=== PATIENT | male | born 1960 | race Caucasian/White ===

== ENCOUNTER 2016-07-10 15:35 | Inpatient (IN) | payer MEDICAID ==
--- NOTE | ~2016-07-10 | CT2 ---
[facility] Service of [facility] RADIOLOGY TEXT RESULTS PATIENT: LINH AKHTAR LOCATION: [facility] 226-01 : [birth year] UNIT #: [id number] AGE: [address]: Ana Rosa Land MD SEX: M ORDER DR: [id number] [facility] [address] [place], [place] [address] [id number] MR#: [id number] Acc #: [id number] NAME: LINH AKHTAR : 1960 SEX: M STUDY DATE/TIME: 07/10/2016 16:47 UNIT: [facility] ROOM: STUDY DESCRIPTION: CT Abd and Pelv W Cont Attending Physician: Jet Urena D.O. Ordering Physician: Jet Urena D.O. Primary Care Physician: Ruben Kilpatrick M.D. MEDICAL IMAGING REPORT This report is preliminary unless electronic signature is present EXAM CT abdomen and pelvis with contrast INDICATIONS Abdominal pain, fever, back pain 4 days. TECHNIQUE CTA abdomen and pelvis was performed following administration of IV contrast. Coronal and sagittal reformatted images were obtained. This CT exam was performed with one or more of the following radiation dose reduction techniques: automatic exposure control, adjustment of mA and/or kV according to patient size, and iterative reconstruction. COMPARISON STUDIES No comparisons. FINDINGS The lung bases are clear. Coronary artery calcification. The liver, gallbladder and spleen are unremarkable. Bilateral renal cysts. The largest is in the lower pole of the left kidney. Tiny nodule in the left adrenal gland, probably an adenoma. The right adrenal gland is unremarkable. Pancreas unremarkable. There is some mild nonspecific stranding about the kidneys. There is ectasia of the infrarenal abdominal aorta. 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 PELVIS: The colon is unremarkable. Prior appendectomy. No free fluid. Remainder of the pelvis is unremarkable. Bone windows are unremarkable. IMPRESSION 1. There is mild perinephric stranding which is nonspecific. It can be [facility] Service of [facility] RADIOLOGY TEXT RESULTS PATIENT: LINH AKHTAR LOCATION: [facility] 226-01 : [birth year] UNIT #: [id number] AGE: [address]: Ana Rosa Land MD SEX: M ORDER DR: seen with pyelonephritis. Correlate clinically with symptoms and correlate with urinalysis if there is clinical suspicion. 2. 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 3. Prior appendectomy. Dictated by... Milind Herrera M.D. THIS IS AN ELECTRONICALLY VERIFIED REPORT Milind Herrera M.D. at 07/11/2016 2:02 PM ARS/pcl TD: 07/10/2016 20:33 JOB #: [id number] MEDICAL IMAGING REPORT Page 1 of 1 COPY
--- NOTE | ~2016-07-10 | CO ---
Unit #: [id number] #: [id number] Patient: LINH AKHTAR [id number] [address] [place], [place] [address] [id number] MR#: [id number] NAME: LIHN AKHTAR ROOM: 226 Age: 55 Sex: M Admission Date: 07/10/2016 : 1960 Attending Physician: Ana Rosa Land M.D. Primary Care Physician: Ruben Kilpatrick M.D. Consultation Date: 07/12/2016 CONSULTATION REPORT REASON FOR CONSULTATION Antibiotic management in a patient with back cellulitis. HISTORY OF PRESENT ILLNESS This is a 55-year-old male who has a history of diabetes that is not well controlled. The patient was seen at his PCP's office for a several-day history of fever at home without any chills or sweats but increasing drainage from a back wound. The patient denies any trauma to the back. He did not take any antibiotics at home. He does report he feels somewhat better since being admitted to the hospital. PAST MEDICAL HISTORY 1. Uncontrolled diabetes type 2. 2. Hyperlipidemia. 3. Peripheral neuropathy. 4. Chronic obesity. PAST SURGICAL HISTORY Appendectomy. ALLERGIES No known allergies. MEDICATIONS Vancomycin and Zosyn. For other medications, please refer to the patient's MAR. SOCIAL HISTORY The patient lives with others. He does smoke tobacco. He has no alcohol or drug abuse. REVIEW OF SYSTEMS The patient does report fever, which has been improving. No chills or sweats. No nausea, vomiting, diarrhea. He denies any shortness of breath or chest pain. He denies any vision changes. The patient reports he has multiple wounds typically that develop, but this has gotten worse on his back, and multiple areas have started draining. PHYSICAL EXAMINATION VITAL SIGNS: Temperature is 98.5 with a T maximum of 100.2 since admission. Pulse is 60. Blood pressure is 104/66, and respiratory rate is 18. GENERAL: This is a male in no apparent distress, sitting in the bed Unit #: [id number] #: [id number] Patient: LINH AKHTAR comfortably. HEENT: His pupils are equal. NECK: His neck is supple. CARDIOVASCULAR: S1, S2. Regular rate and rhythm. PULMONARY: Clear to auscultation bilaterally with no wheezes or rhonchi noted. ABDOMEN: Positive bowel sounds. Soft and nontender. EXTREMITIES: No clubbing, cyanosis or edema. SPINE EXAM: On the midline of the spine there is an area of significant erythema, induration and some pinpoint areas of purulent drainage. DIAGNOSTIC STUDIES LABS: BUN 10, creatinine 0.9, sodium 135, potassium 2.5, chloride 100, CO2 25. WBC 16.4, which is improved from 18.7, platelets 428, hemoglobin 13, hematocrit 42. Urinalysis is unremarkable. Blood cultures are currently negative to date. IMAGING: CT scan of the abdomen and pelvis was done due to pain; however, he denies any abdominal pain to me. Showed there was some mild perinephric stranding, which was nonspecific. IMPRESSION This is a 55-year-old male with uncontrolled diabetes, now with cellulitis of his back. At this time the patient has been on vancomycin and Zosyn and continues to have leukocytosis. At this time, would recommend continuing local wound care but will also culture the wound. Will also check a CBC in the a.m. The patient's CT scan was noted; however, his UA is unremarkable, and he has no UTI signs or symptoms and doubt pyelonephritis at this time. The patient's fever is also resolved. Thank you for allowing us to participate in the care of this patient. Further recommendations to follow pending the patient's clinical course. Dictated by... Dahiana Bender A.P.R.N. for Sierra Cody TD: 07/12/2016 12:03 JOB #: [id number] CONSULTATION REPORT Page 1 of 1 X X CONSULTATION REPORT
--- NOTE | ~2016-07-10 | HP ---
Unit #: [id number] #: [id number] Patient: LINH AKHTAR [id number] [address] [address] [id number] I MR#: [id number] NAME: LINH AKHTAR ROOM: 226 Age: 55 Sex: M Admission Date: 07/10/2016 : 1960 Attending Physician: Ana Rosa Land M.D. Primary Care Physician: Ruben Kilpatrick M.D. HISTORY AND PHYSICAL CHIEF COMPLAINT Pain in the back. HISTORY OF PRESENTING ILLNESS This 55-year-old male who has a history of diabetes mellitus which is uncontrolled, hyperlipidemia, peripheral neuropathy, morbid obesity, went to see Dr. Kilpatrick's practice and was seen by Patria Espinal, was told that he has bad cellulitis and was advised to come to ER. Patient was seen and evaluated by ER and was admitted for IV antibiotics. According to patient this started about two to three days ago which was gradually getting worse. He has had this kind of problem in the past. He does complain of fever but no complaint of chills or fatigue or tiredness. No complaint of nausea or vomiting. No complaint of diarrhea. PAST MEDICAL HISTORY 1. Diabetes mellitus type 2, uncontrolled. 2. Hyperlipidemia. 3. Peripheral neuropathy. 4. Chronic obesity. SOCIAL HISTORY Patient lives at home with his . He has a history of smoking one pack per day, has been smoking for more than 30 years, no history of alcohol abuse or drug abuse. PAST SURGICAL HISTORY Appendectomy. ALLERGIES No known drug allergies. HOME MEDICATION 1. Jardiance 10 mg daily. 2. Zoloft 25 mg daily. 3. Aspirin 81 mg daily. 4. Lyrica 100 mg t.i.d. 5. Tradjenta 5 mg daily. 6. Lantus 90 units subcu daily. 7. Metformin 850 mg t.i.d. 8. Lopid 600 mg b.i.d. 9. Vitamin D3 5000 units weekly. 10. Lipitor 20 mg daily. Unit #: [id number] #: [id number] Patient: LINH AKHTAR REVIEW OF SYMPTOMS As per history of presenting illness. No history of chest pain. No history of abdominal pain. No history of shortness of breath more than normal. No palpitation. No dizziness. No syncopal episode. PHYSICAL EXAMINATION GENERAL APPEARANCE: Patient is sitting in a bed in no respiratory distress. VITAL SIGNS: Blood pressure is 120/63. Respiratory rate 18. Pulse is 97. Temperature 99.4. T-max is 100.2. Oxygen saturation is 95%. HEENT: Head is normocephalic. Eye movements are normal. Pale conjunctivae. NECK: Neck is supple. No carotid bruit. No thyromegaly. CHEST: Has fair air entry, no additional sounds. CVS: S1, S2 positive, regular rhythm. ABDOMEN: Obese. No tenderness. No rigidity. BACK: There is about 2 cm in the middle of the back abscess is present with some opening and drainage. Tenderness is present. Increased temperature is present. REGISTERED NURSE CARDIAC: Patient is awake, alert and oriented x3. No focal neurological deficit. DIAGNOSTIC STUDIES LABORATORY WORKUP: WBC is 18.7, hemoglobin 14.6, hematocrit 44.8 and platelet count of 371, lactic acid 1.2, sodium 134, potassium 4.2, chloride 96, BUN 12, creatinine 1.0. Urinalysis was done which shows 1+ bacteria, more than 1000 glucose. Glucose is 228, sodium 136, potassium 3.9, chloride 99, BUN 11, creatinine 0.9 this morning. Blood cultures have been done which are negative. IMAGING: CT scan of the abdomen and pelvis was done and that shows mild perinephric stranding which is nonspecific. There is a 2.5 cm aneurysm, dilatation of the right common iliac, prior appendectomy. ASSESSMENT Patient is being admitted to med/surg unit with: 1. Cellulitis on the back. 2. Uncontrolled diabetes mellitus. 3. Hyponatremia. 4. Leukocytosis secondary to cellulitis. 5. Hyperlipidemia. 6. Peripheral neuropathy. 7. Morbid obesity. 8. Tobacco abuse. PLAN Plan is admit to med/surg unit. IV vancomycin 1 g q.12 h. is being started, pharmacy to dose, and IV Zosyn 3.375 g q.6 h. Home medications have been reviewed and adjusted. Accu-Chek a.c. and h.s. with insulin sliding scale is being started. Please refer to progress note for further orders. Lovenox 40 mg subcu daily is being started. Home medications have been adjusted. Plan of care has been discussed with patient and the patient's family who is in the room. Tobacco cessation counseling done. Dictated by Unit #: [id number] #: [id number] Patient: LINH AKHTAR M.D. KN/marybel TD: 07/11/2016 16:27 JOB #: [id number] HISTORY AND PHYSICAL Page 1 of 1 X Ana Rosa Land MD X HISTORY AND PHYSICAL
--- NOTE | ~2016-07-10 | DS ---
Unit #: [id number] #: [id number] Patient: LINH AKHTAR [id number] [facility]. [address] [address] [id number] I MR#: [id number] NAME: LINH AKHTAR ROOM: 226 Age: 55 Sex: M Admission Date: 07/10/2016 : 1960 Discharge Date: 07/14/2016 Attending Physician: Ana Rosa Land M.D. Primary Care Physician: Ruben Kilpatrick M.D. DISCHARGE SUMMARY DISCHARGE DIAGNOSES 1. Cellulitis. 2. Diabetes. 3. Obesity. DISCHARGE MEDICATIONS 1. Nicotine patch 14 mg daily. 2. Lipitor 20 mg at bedtime. 3. Levemir 40 units subcu b.i.d. 4. Aspirin 81 mg daily. 5. Jardiance 10 mg daily. 6. Vitamin D3 - 50,000 units p.o. weekly. 7. Tylenol p.r.n. 8. Lyrica 100 mg t.i.d. 9. Zoloft 25 mg daily. 10. Metformin 850 mg p.o. t.i.d. 11. Lopid 600 mg b.i.d. 12. Tradjenta 5 mg daily. DISPOSITION Home. FOLLOWUP Follow up with primary care physician in 2-3 days. CONSULTS ON THIS HOSPITAL STAY ID, Dr. Vásquez. DIAGNOSTIC STUDIES IMAGING: CT of the abdomen and pelvis on admission - Mild perinephric stranding, which is nonspecific. A 2.5 cm aneurysmal dilation of the right common iliac artery. Prior appendectomy. LABS: Blood culture negative. Wound culture positive for MSSA. UA unremarkable for infection. HISTORY OF PRESENT HOSPITAL STAY Please refer to H and P done by my colleague for initial presentation on this gentleman. ACTIVE PROBLEMS AND DIAGNOSES ON THIS HOSPITAL STAY Cellulitis. Wound culture as above. Status post evaluation per ID. Stable to be discharged on p.o. Keflex. Currently afebrile. White count 13,000. Monitor as an outpatient. Outpatient followup with primary care physician. Unit #: [id number] #: [id number] Patient: LINH AKHTAR Insulin-dependent diabetes. Continue insulin and oral hypoglycemics as above. Outpatient followup with primary care physician. Dyslipidemia. Continue home meds. . Continue home meds. Dictated by... Sierra Bolanos/estrada TD: 07/14/2016 15:26 JOB #: [id number] DISCHARGE SUMMARY Page 1 of 1 X Kain Abebe MD X DISCHARGE SUMMARY
[2016-07-10 15:07] LABS: BASOPHIL# 0.2 X10e3 (0-0.3); BASOPHIL% 0.8 % (0-2.5); EOSINOPHIL% 0.2 % (0.0-7.0); HEMATOCRIT 44.8 % (38.0-50.0); HEMOGLOBIN 14.6 gm/dL (13.0-16.0); LYMPHOCYTE# 1.5 X10e3 (1.0-3.5); LYMPHOCYTE% 7.9 % (17.0-45.0); MEAN CELL VOLUME 91.4 FL (83-96); MEAN CORPUSCULAR HEMOGLOBIN 29.9 PG (28-34); MEAN CORPUSCULAR HGB CONC 32.7 g/dL (30-36); MEAN PLATELET VOLUME 10.1 FL (6.5-11.5); MONOCYTE# 1.4 X10e3 (0-1.0); MONOCYTE% 7.5 % (3.0-12.0); NEUTROPHIL# 15.6 X10e3 (1.5-7.1); NEUTROPHIL% 83.6 % (40-75); RED CELL DISTRIBUTION WIDTH 14.8 % (11.0-15.5); WHITE BLOOD COUNT 18.7 X10e3 (4.0-10.5)
[2016-07-10 15:12] LABS: DIFF IND NO; PLATELET COUNT 371 X10e3 (140-420)
[~2016-07-10 15:35] MED LIST: ASPIRIN EC81 M1 PO; ATORVASTATIN CA20 MG PO; AUGMENTIN875 M1 PO; BACITRACIN500/UDPK1 TOP; GABAPENTIN300 MG PO; GEMFIBROZIL1 GM MC; LANTUS100 U/ML; LYRICA PO; METFORMIN PO; PERCOCET7.5 PO; TOPAMAX25 MG DOB; TRADJENTA5 MG PO; [UNRECOGNIZED DRUG - OTHER] IM
[2016-07-10 15:52] LABS: CALCIUM SERUM 9.1 mg/dL (8.4-10.2); GLOM FILT RATE Estimated 83.2 mL/min (>60); POTASSIUM 4.2 mmol/L (3.5-5.1)
[2016-07-10 19:43] LABS: URINE SOURCE CLEAN CATCH
[2016-07-10 19:47] LABS: URINE APPEARANCE CLEAR; URINE BILIRUBIN NEG (NEG); URINE BLOOD NEG (NEG); URINE COLOR YELLOW; URINE GLUCOSE >1000 MG/DL (NEG); URINE KETONE TRACE (NEG); URINE LEUKOCYTE ESTERASE NEG (NEG); URINE NITRATE NEG (NEG); URINE PROTEIN 1+ (NEG); URINE SPECIFIC GRAVITY 1.044 (1.003-1.035)
[2016-07-10 19:50] LABS: URBCS1 AUWI 0-2 /[HPF] (0-2); URINE BACTERIA AUWI NEG (NEGATIVE); URINE SQUAMOUS EPITHELIAL CELL NONE SEEN /[HPF]; UWBCS1 AUWI 0-2 (0-5)
[2016-07-10 19:51] LABS: CULTURE INDICATED? NO
[2016-07-10] MEDS ORDERED: LOPID600 MG PO (23:19)
[2016-07-10] MEDS ORDERED: LANTUS100 UNITS/ SUBQ (23:19)
[2016-07-10] MEDS ORDERED: METFORMIN HCL850 MG PO (23:19)
[2016-07-10] MEDS ORDERED: VITAMIN D35000 UNI1 PO (23:20)
[2016-07-10] MEDS ORDERED: LIPITOR20 MG PO (23:20)
[2016-07-10] MEDS ORDERED: JARDIANCE10 MG PO (23:21)
[2016-07-10] MEDS ORDERED: TRADJENTA5 MG PO (23:22)
[2016-07-10] MEDS ORDERED: SERTRALINE HCL25 M2 PO (23:22)
[2016-07-10] MEDS ORDERED: ASPIRIN81 MG PO (23:22)
[2016-07-10] MEDS ORDERED: LYRICA100 MG PO (23:22)
[2016-07-11 07:14] LABS: BUN/CREATININE RATIO 12.22; CALCIUM SERUM 8.7 mg/dL (8.4-10.2); CREATININE SERUM 0.9 mg/dL (0.6-1.4); GLOM FILT RATE Estimated 94.5 mL/min (>60); POTASSIUM 3.9 mmol/L (3.5-5.1)
[2016-07-12 05:50] LABS: HEMATOCRIT 42.7 % (38.0-50.0); HEMOGLOBIN 13.9 gm/dL (13.0-16.0); MEAN CELL VOLUME 90.5 FL (83-96); MEAN CORPUSCULAR HEMOGLOBIN 29.5 PG (28-34); MEAN CORPUSCULAR HGB CONC 32.6 g/dL (30-36); MEAN PLATELET VOLUME 9.4 FL (6.5-11.5); RED BLOOD COUNT 4.72 X10e (3.90-5.60); WHITE BLOOD COUNT 16.4 X10e3 (4.0-10.5)
[2016-07-12 06:09] LABS: BUN/CREATININE RATIO 11.11; CALCIUM SERUM 8.1 mg/dL (8.4-10.2); CREATININE SERUM 0.9 mg/dL (0.6-1.4); GLOM FILT RATE Estimated 94.5 mL/min (>60)
[2016-07-12 06:11] LABS: POTASSIUM 2.5 mmol/L (3.5-5.1)
[2016-07-13 05:28] LABS: HEMATOCRIT 37.5 % (38.0-50.0); HEMOGLOBIN 12.3 gm/dL (13.0-16.0); MEAN CELL VOLUME 90.5 FL (83-96); MEAN CORPUSCULAR HEMOGLOBIN 29.7 PG (28-34); MEAN CORPUSCULAR HGB CONC 32.9 g/dL (30-36); MEAN PLATELET VOLUME 9.4 FL (6.5-11.5); RED BLOOD COUNT 4.15 X10e (3.90-5.60); RED CELL DISTRIBUTION WIDTH 14.5 % (11.0-15.5); WHITE BLOOD COUNT 12.8 X10e3 (4.0-10.5)
[2016-07-13 05:41] LABS: BUN/CREATININE RATIO 15.71; CALCIUM SERUM 8.1 mg/dL (8.4-10.2); CREATININE SERUM 0.7 mg/dL (0.6-1.4); GLOM FILT RATE Estimated 104.8 mL/min (>60); MAGNESIUM 1.8 mg/dL (1.6-3.0); POTASSIUM 3.1 mmol/L (3.5-5.1)
[2016-07-14 06:40] LABS: HEMATOCRIT 40.3 % (38.0-50.0); MEAN CELL VOLUME 91.2 FL (83-96); MEAN CORPUSCULAR HEMOGLOBIN 29.4 PG (28-34); MEAN CORPUSCULAR HGB CONC 32.3 g/dL (30-36); RED BLOOD COUNT 4.42 X10e (3.90-5.60); RED CELL DISTRIBUTION WIDTH 14.5 % (11.0-15.5); WHITE BLOOD COUNT 13.1 X10e3 (4.0-10.5)
[2016-07-14 06:44] LABS: BUN/CREATININE RATIO 11.42; CALCIUM SERUM 8.3 mg/dL (8.4-10.2); CREATININE SERUM 0.7 mg/dL (0.6-1.4); GLOM FILT RATE Estimated 104.8 mL/min (>60); MAGNESIUM 1.8 mg/dL (1.6-3.0)
[2016-07-14] MEDS ORDERED: NICOTINE TRANSD14 MG TOP (14:34)
[2016-07-14] MEDS ORDERED: KEFLEX PO (14:34)
== END 2016-07-14 15:26 | disposition home or self-care (01) | DRG 603 ==
LOC: CED 15:35 → CEDOF 18:23 → C2A 21:13
PROVIDERS: Emergency Medicine; Internal Medicine; Physician Assistant Medical
DX: L03.312 Cellulitis of back [any part except buttock and flank] (principal); E11.65 Type 2 diabetes mellitus with hyperglycemia; E87.1 Hypo-osmolality and hyponatremia; G62.9 Polyneuropathy, unspecified; E78.5 Hyperlipidemia, unspecified; E66.01 Morbid (severe) obesity due to excess calories; Z68.39 Body mass index [BMI] 39.0-39.9, adult; Z90.49 Acquired absence of other specified parts of digestive tract; F17.210 Nicotine dependence, cigarettes, uncomplicated; Z79.82 Long term (current) use of aspirin; Z79.4 Long term (current) use of insulin; E87.6 Hypokalemia
CPT/HCPCS: 36415; 74177; 80048; 80202; 81003; 82947; 83036; 83605; 83735; 84132; 85025; 85027; 87040; 87070; 87077; 87186; 87205; 96365; 96366; 96368; 99285; J1650; J1815; J2543; J3370; J3475; Q9967